=== PATIENT | male | born 1970 | race Caucasian/White ===

== ENCOUNTER 2016-12-03 09:08 | Emergency (ER) | payer OTHER ==
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
[2016-12-03] MEDS: KETOROLAC 15 MG/ML VIAL. IV ONE (09:42)
[2016-12-03] MEDS: DIAZEPAM 10 MG/2 ML DISP.SYRIN. IV ONE (09:43)
[2016-12-03] MEDS: HYDROMORPHONE PF 1 MG/ML DISP.SYRIN. IV ONE (09:46)
[2016-12-03] MEDS ORDERED: NAPR500T3 PO (10:16)
[2016-12-03] MEDS ORDERED: HYDR-971 PO (10:16)
[2016-12-03 10:30] VITALS: BP 111/65
== END 2016-12-03 09:45 | disposition home or self-care (01) ==
LOC: ER 09:08
DX: M54.5 Low back pain (principal); M54.2 Cervicalgia; G89.29 Other chronic pain; Z88.8 Allergy status to other drugs, medicaments and biological substances; V49.9XXA Car occupant (driver) (passenger) injured in unspecified traffic accident, initial encounter; Y93.89 Activity, other specified; Y99.8 Other external cause status; Y92.89 Other specified places as the place of occurrence of the external cause
CPT/HCPCS: 96374; 96375; 99284; J1170; J1885

== ENCOUNTER → 2016-12-12 | Outpatient (CLI) | payer OTHER ==
[2016-12-03 10:30] VITALS: BP 111/65
[~2016-12-12] MED LIST: HYDR-971 PO; NAPR500T3 PO
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
== END | disposition home or self-care (01) ==
LOC: DXRADRC 10:27
PROVIDERS: ATTEND Family Medicine
DX: M47.892 Other spondylosis, cervical region (principal)
CPT/HCPCS: 72040